=== PATIENT | male | born 1970 | race Caucasian/White ===

== ENCOUNTER 2023-09-22 15:25 | Outpatient (CLI) | payer BC, SELFPAY | END 2023-09-22 15:26 | disposition home or self-care (01) | LOC: LKVREF 15:28 | PROVIDERS: PCP Family Medicine; Visit Provider Family Medicine | DX: Z01.818 Encounter for other preprocedural examination (principal) | CPT/HCPCS: 80048 ==

== ENCOUNTER 2024-09-07 16:08 | Outpatient (CLI) | payer BC, SELFPAY | END 2024-09-07 16:09 | disposition home or self-care (01) | PROVIDERS: PCP Family Medicine; Visit Provider Family Medicine | DX: Z00.00 Encounter for general adult medical examination without abnormal findings (principal); Z13.228 Encounter for screening for other metabolic disorders; Z13.6 Encounter for screening for cardiovascular disorders; Z11.59 Encounter for screening for other viral diseases; Z12.5 Encounter for screening for malignant neoplasm of prostate | CPT/HCPCS: 80053; 80061; 86803; G0103 ==

== ENCOUNTER 2024-12-27 14:24 | Outpatient (CLI) | payer BC, SELFPAY | END 2024-12-27 14:25 | disposition home or self-care (01) | LOC: FRMREF 14:30 | PROVIDERS: PCP Family Medicine; Visit Provider Family Medicine | DX: Z20.6 Contact with and (suspected) exposure to human immunodeficiency virus [HIV] (principal) | CPT/HCPCS: 86703 ==